=== PATIENT | male | born 1965 | race Caucasian/White ===

== ENCOUNTER 2022-01-24 14:29 | Outpatient (CLI) | payer BC | END 2022-01-24 14:30 | disposition home or self-care (01) | LOC: BICRAD 14:29 | PROVIDERS: ATTEND Internal Medicine | DX: R06.00 Dyspnea, unspecified (principal) | CPT/HCPCS: 71046 ==

== ENCOUNTER 2022-01-27 12:45 | Outpatient (CLI) | payer BC ==
[~2022-01-27 12:45] MED LIST: Iopamidol 370 76% 100 ML VIAL ONE
[2022-01-27 13:24] LABS: Bacteria/HPF None Seen HPF (None Seen); Bilirubin Negative (Negative); Blood, Urine Negative (Negative); Clarity Clear (Clear); Glucose, Urine (Dipstick) Normal (Negative); Ketone, Urine Negative (Negative); Leukocyte Negative Leu/uL (Negative); Nitrite Negative (Negative); Protein, Urine (Dipstick) 30 mg/dL (Neg-Trace); RBC/HPF 0-3 HPF (0-3); Squamous Epithelial None Seen HPF (0-3); Urobilinogen Normal mg/dL (Less than 2); WBC/HPF 0-3 HPF (0-3); pH, Urine 5.5 (5.0-9.0)
[2022-01-27 13:25] LABS: Urine Culture Reflex No No
[2022-01-27 13:31] LABS: #Eosinphils 0.2 thou/uL (0.0-0.7); #Lymphocytes 1.4 thou/uL (1.20-3.40); #Monocytes 1.1 thou/uL (0.11-0.59); #Neutrophils 6.8 thou/uL (1.40-6.50); %Basophils 0.4 % (0.0-1.0); %Eosinophils 2.4 % (0.0-10.0); %Monocytes 11.7 % (0.0-10.0); %Neutrophils 70.6 % (42.0-75.0); Hemoglobin 12.4 g/dL (14.0-18.0); Mean Corpuscular Hemoglobin 26.8 pg (27.0-31.0); Mean Corpuscular Volume 86.3 fL (78.0-98.0); Mean Platelet Volume 5.8 fL (7.4-10.4); Platelet Count 442 thou/uL (130-400); RBC Distribution Width 14.5 % (11.5-14.5); Red Blood Cell (RBC) Count 4.63 mill/uL (4.70-6.10); White Blood Cell (WBC) Count 9.6 thou/uL (4.8-10.8)
[2022-01-27 13:50] LABS: Iron 17 ug/dL (65-175); Iron Binding Capacity, Total 289 mcg/dL (261-462)
[2022-01-27 14:23] LABS: Ferritin 128.79 ng/mL (22-322)
== END 2022-01-27 12:46 | disposition home or self-care (01) ==
LOC: CT 12:45
PROVIDERS: ATTEND Internal Medicine
DX: R10.10 Upper abdominal pain, unspecified (principal); R63.4 Abnormal weight loss; D64.9 Anemia, unspecified; R59.0 Localized enlarged lymph nodes; K63.89 Other specified diseases of intestine; N28.9 Disorder of kidney and ureter, unspecified
CPT/HCPCS: 74177; 81001; 82607; 82728; 82746; 83540; 83550; 85025; Q9967

== ENCOUNTER 2022-02-13 14:54 | Outpatient (CLI) | payer BC ==
[2022-02-13 15:42] LABS: #Basophils 0.1 10x3/uL (0.0-0.2); #Eosinphils 0.1 10x3/uL (0.0-0.5); #Neutrophils 7.1 10x3/uL (1.5-8.4); %Basophils 0.6 % (0.0-2.0); %Eosinophils 1.3 % (0.0-6.0); %Lymphocytes 13.4 % (18.0-47.0); %Monocytes 10.3 % (0.0-10.0); Hemoglobin 10.4 g/dL (13.5-17.5); Mean Corpuscular HGB CONC 31.1 g/dL (32.0-36.0); Mean Corpuscular Hemoglobin 25.2 pg (27.0-33.0); Mean Corpuscular Volume 80.9 fl (81.2-95.1); Mean Platelet Volume 8.5 fl (7.4-10.4); Platelet Count 525 10x3/uL (150-450); RBC Distribution Width 15.6 % (11.5-14.5); Red Blood Cell (RBC) Count 4.13 10x6/uL (4.32-5.72); White Blood Cell (WBC) Count 9.5 10x3/uL (3.5-10.5)
[2022-02-13 16:10] LABS: Anion Gap 18 mmol/L (10-20); BUN (Urea Nitrogen) 14 mg/dL (8.4-25.7); Calc. Creatinine Clearance 0 mL/min (70-130); Calcium 8.8 mg/dL (7.8-10.44); Carbon Dioxide 24 mmol/L (22-29); Chloride 102 mmol/L (98-107); Glucose 90 mg/dL (70-105); Potassium 4.5 mmol/L (3.5-5.1); Sodium 139 mmol/L (136-145)
== END 2022-02-13 14:55 | disposition home or self-care (01) ==
LOC: LABBT 14:54
PROVIDERS: ATTEND Specialist
DX: Z01.818 Encounter for other preprocedural examination (principal); C85.93 Non-Hodgkin lymphoma, unspecified, intra-abdominal lymph nodes; Z20.822 Contact with and (suspected) exposure to COVID-19
CPT/HCPCS: 80048; 85025; 93005; 93010; U0003; U0005

== ENCOUNTER 2022-02-14 08:00 | Outpatient (CLI) | payer BC | END 2022-02-14 08:01 | disposition home or self-care (01) | LOC: PET 08:00 | PROVIDERS: ATTEND Internal Medicine Hematology & Oncology | DX: C83.36 Diffuse large B-cell lymphoma, intrapelvic lymph nodes (principal) | CPT/HCPCS: 78815; A9552 ==

== ENCOUNTER 2022-02-14 11:18 | Day surgery (SDC) | payer BC ==
[2022-02-13 12:29] VITALS: BMI 31.1
[2022-02-14] MEDS ORDERED: Acetaminophen 500 MG TAB ONE ×2 (11:49)
[2022-02-14] MEDS ORDERED: Ketorolac Tromethamine 30 MG/ML VIAL ONE (11:49)
[2022-02-14] MEDS ORDERED: fentaNYL Citrate/PF 100 MCG/2 ML SYRINGE ONE (14:17)
[2022-02-14] MEDS ORDERED: PROPOFOL 20 ML ONE (14:17)
[2022-02-14] MEDS ORDERED: Bupivacaine 0.25% HCL 30 ML VIAL ONE (14:20)
[2022-02-14] MEDS ORDERED: Lidocaine 1% w/Epinephrine 1:100K 20 ML VIAL ONE (14:20)
[2022-02-14] MEDS ORDERED: Sodium Chloride 0.9% 100 ML ONE (14:29)
[2022-02-14] MEDS ORDERED: CEFAZOLIN 2 GM VIAL ONE (14:29)
[2022-02-14] MEDS ORDERED: Lidocaine 1% PF 5 ML VIAL ONE (14:41)
[2022-02-14] MEDS ORDERED: PROPOFOL 200 MG/20 ML VIAL ONE (14:41)
== END 2022-02-14 16:39 | disposition home or self-care (01) ==
LOC: SDC 11:18
PROVIDERS: ATTEND Specialist
DX: C85.93 Non-Hodgkin lymphoma, unspecified, intra-abdominal lymph nodes (principal); E78.5 Hyperlipidemia, unspecified; G47.33 Obstructive sleep apnea (adult) (pediatric); Z86.16 Personal history of COVID-19; Z79.899 Other long term (current) drug therapy; C83.36 Diffuse large B-cell lymphoma, intrapelvic lymph nodes
CPT/HCPCS: 71045; 78815; A9552; C1788; J0690; J1642; J1885; J2704; J3490; S0020

== ENCOUNTER 2022-02-21 07:06 | Day surgery (SDC) | payer BC ==
[2022-02-17 12:33] VITALS: BMI 30.5
[~2022-02-21 07:06] MED LIST changes: -Iopamidol 370 76% 100 ML VIAL ONE; +Methotrexate Sodium/PF 12 MG in Sodium Chloride 0.9% 9.52 ML IT SCH
[2022-02-21 08:24] VITALS: BP 129/78; TEMP 97.6
[2022-02-21 09:21] LABS: Clarity Clear (Clear); Tube # 4
[2022-02-21 10:20] LABS: BF Color Colorless
[2022-02-21 10:21] LABS: BF RBC Count - Manual 6 /cu.mm; BF WBC/Nonhematics Ct.-Manual 3 /cu.mm
== END 2022-02-21 09:45 | disposition home or self-care (01) ==
LOC: RAD 07:06
PROVIDERS: ATTEND Internal Medicine Hematology & Oncology
PROC: 00JU3ZZ Inspection of Spinal Canal, Percutaneous Approach (ICD-10-PCS; principal; 2022-02-21)
DX: C83.36 Diffuse large B-cell lymphoma, intrapelvic lymph nodes (principal); D63.0 Anemia in neoplastic disease; Z79.52 Long term (current) use of systemic steroids; Z79.899 Other long term (current) drug therapy
CPT/HCPCS: 62270; 84157; 88112; 88184; 89051; J9250

== ENCOUNTER 2022-02-22 11:14 | Outpatient (CLI) | payer BC | END 2022-02-22 11:15 | disposition home or self-care (01) | LOC: SCSMRI 11:14 | PROVIDERS: ATTEND Internal Medicine Hematology & Oncology | DX: C83.36 Diffuse large B-cell lymphoma, intrapelvic lymph nodes (principal); M89.8X6 Other specified disorders of bone, lower leg ==

== ENCOUNTER → 2022-03-14 | Day surgery (SDC) | payer BC ==
[2022-03-13 15:40] VITALS: BMI 30.5
[~2022-03-14] MED LIST changes: +Prevnar 13-Val Conj/PF 0.5 ML SYRINGE IM ONE
[2022-03-14 13:14] VITALS: BP 128/81; TEMP 98.4
[2022-03-14 14:00] LABS: CSF Source CSF; Clarity Clear (Clear); Tube # 4
== END | disposition home or self-care (01) ==
LOC: RAD 12:17
PROVIDERS: ATTEND Internal Medicine Hematology & Oncology
PROC: 009U3ZX Drainage of Spinal Canal, Percutaneous Approach, Diagnostic (ICD-10-PCS; principal; 2022-03-14)
DX: C83.36 Diffuse large B-cell lymphoma, intrapelvic lymph nodes (principal); Z57.1 Occupational exposure to radiation; Z79.52 Long term (current) use of systemic steroids; Z79.899 Other long term (current) drug therapy
CPT/HCPCS: 62270; 84157; 88112; 88184; 89051; J9250

== ENCOUNTER 2022-03-28 08:00 | Outpatient (CLI) | payer BC | END 2022-03-28 08:01 | disposition home or self-care (01) | LOC: PET 08:00 | PROVIDERS: ATTEND Internal Medicine Hematology & Oncology | DX: C83.36 Diffuse large B-cell lymphoma, intrapelvic lymph nodes (principal) | CPT/HCPCS: 78815; A9552 ==

== ENCOUNTER 2022-04-04 12:12 | Day surgery (SDC) | payer BC ==
[2022-03-30 12:08] VITALS: BMI 30.5
[2022-04-04] MEDS ORDERED: Methotrexate Sodium/PF 12 MG in Sodium Chloride 0.9% 9.52 ML IT SCH (12:45)
[2022-04-04 13:00] VITALS: TEMP 98.2
[2022-04-04 15:17] VITALS: BP 122/88
[2022-04-04 15:35] LABS: CSF Source CSF; Clarity Clear (Clear); Tube # 4
== END 2022-04-04 14:50 | disposition home or self-care (01) ==
LOC: RAD 12:12
PROVIDERS: ATTEND Internal Medicine Hematology & Oncology
PROC: 009U3ZX Drainage of Spinal Canal, Percutaneous Approach, Diagnostic (ICD-10-PCS; principal; 2022-04-04)
DX: C83.36 Diffuse large B-cell lymphoma, intrapelvic lymph nodes (principal)
CPT/HCPCS: 62270; 84157; 88112; 88184; 89051; J9250

== ENCOUNTER → 2022-04-25 | Day surgery (SDC) | payer BC ==
[2022-04-19 10:51] VITALS: BMI 30.5
[2022-04-25 13:14] VITALS: BP 137/85; TEMP 97.6
[2022-04-25 14:51] LABS: CSF Source CSF; Clarity Clear (Clear); Tube # 4
== END | disposition home or self-care (01) ==
LOC: RAD 12:22
PROVIDERS: ATTEND Internal Medicine Hematology & Oncology
PROC: 009U3ZX Drainage of Spinal Canal, Percutaneous Approach, Diagnostic (ICD-10-PCS; principal; 2022-04-25)
DX: C83.36 Diffuse large B-cell lymphoma, intrapelvic lymph nodes (principal); Z79.52 Long term (current) use of systemic steroids; Z79.899 Other long term (current) drug therapy
CPT/HCPCS: 62270; 84157; 88112; 88184; 89051; J9250

== ENCOUNTER 2022-05-16 12:24 | Day surgery (SDC) | payer BC ==
[~2022-05-16 12:24] MED LIST changes: -Prevnar 13-Val Conj/PF 0.5 ML SYRINGE IM ONE
[2022-05-17 07:24] LABS: CSF Source CSF; Clarity Clear (Clear); Tube # 3
== END 2022-05-16 15:03 | disposition home or self-care (01) ==
LOC: RAD 12:24
PROVIDERS: ATTEND Internal Medicine Hematology & Oncology
PROC: 009U3ZX Drainage of Spinal Canal, Percutaneous Approach, Diagnostic (ICD-10-PCS; principal; 2022-05-16)
DX: C83.36 Diffuse large B-cell lymphoma, intrapelvic lymph nodes (principal)
CPT/HCPCS: 62270; 84157; 88112; 88184; 89051; J9250

== ENCOUNTER 2022-06-06 12:13 | Day surgery (SDC) | payer BC ==
[~2022-06-06 12:13] MED LIST changes: +Methotrexate Sodium/PF 12 MG in Sodium Chloride 0.9% 10 ML IT SCH
[2022-06-06 13:10] VITALS: BP 142/92; TEMP 97.4; BMI 29.8
[2022-06-06 16:23] LABS: CSF, Glucose 66 mg/dl (40-70); CSF, Protein 32 mg/dL (15-40)
[2022-06-06 17:14] LABS: CSF Source CSF
[2022-06-06 17:15] LABS: Clarity Clear (Clear); Tube # 3
[2022-06-06 17:34] LABS: Cell Count Non Hematic 50 %; Lymphocytes 22 %; Segmented Neutrophils 28 %
[2022-06-07 00:33] LABS: Color Of CSF Supernatant COLORLESS (Colorless); Unspun CSF Color COLORLESS (Colorless)
[2022-06-07 00:34] LABS: Tube # 2
== END 2022-06-06 15:13 | disposition home or self-care (01) ==
LOC: RAD 12:13
PROVIDERS: ATTEND Internal Medicine Hematology & Oncology
PROC: 009U3ZX Drainage of Spinal Canal, Percutaneous Approach, Diagnostic (ICD-10-PCS; principal; 2022-06-06)
DX: C83.36 Diffuse large B-cell lymphoma, intrapelvic lymph nodes (principal)
CPT/HCPCS: 62270; 82945; 84157; 85060; 88184; 89051; J9250

== ENCOUNTER → 2022-09-26 | Outpatient (CLI) | payer BC | LOC: PET 10:15 | PROVIDERS: ATTEND Internal Medicine Hematology & Oncology | DX: C83.36 Diffuse large B-cell lymphoma, intrapelvic lymph nodes (principal) | CPT/HCPCS: 78815; A9552 ==

== ENCOUNTER 2022-12-19 11:00 | Outpatient (CLI) | payer BC | END 2022-12-19 11:01 | disposition home or self-care (01) | LOC: PET 11:00 | PROVIDERS: ATTEND Internal Medicine Hematology & Oncology | DX: C83.36 Diffuse large B-cell lymphoma, intrapelvic lymph nodes (principal) | CPT/HCPCS: 78815; A9552 ==

== ENCOUNTER 2023-03-20 08:45 | Outpatient (CLI) | payer BC | END 2023-03-20 08:46 | disposition home or self-care (01) | LOC: PET 08:45 | PROVIDERS: ATTEND Internal Medicine Hematology & Oncology | DX: C83.36 Diffuse large B-cell lymphoma, intrapelvic lymph nodes (principal) | CPT/HCPCS: 78815; A9552 ==

== ENCOUNTER 2023-06-25 07:33 | Outpatient (CLI) | payer BC ==
[2023-06-25] MEDS ORDERED: Iopamidol 370 76% 100 ML VIAL ONE (14:35)
== END 2023-06-25 07:34 | disposition home or self-care (01) ==
LOC: BICCT 07:33
PROVIDERS: ATTEND Internal Medicine Hematology & Oncology
DX: C83.36 Diffuse large B-cell lymphoma, intrapelvic lymph nodes (principal); N28.89 Other specified disorders of kidney and ureter
CPT/HCPCS: 71260; 74177; 80053; 82248; 83615; 84100; 84550

== ENCOUNTER 2024-06-23 09:07 | Outpatient (CLI) | payer BC ==
[2024-06-23] MEDS ORDERED: Iopamidol 370 76% 100 ML VIAL ONE (13:15)
== END 2024-06-23 09:08 | disposition home or self-care (01) ==
LOC: BICCT 09:07
PROVIDERS: ATTEND Internal Medicine Hematology & Oncology
DX: C83.36 Diffuse large B-cell lymphoma, intrapelvic lymph nodes (principal)
CPT/HCPCS: 71260; 74177; Q9967